=== PATIENT | male | born 1970 | race Caucasian/White ===

== ENCOUNTER 2017-11-26 16:17 | Observation (INO) | payer OTHER ==
--- NOTE | 2017-11-26 16:24 | EDPHY ---
H & P Time Seen by Provider: 11/26/17 16:21 HPI/ROS: CHIEF COMPLAINT: Left ankle pain HISTORY OF PRESENT ILLNESS: 47-year-old male arrives via ambulance, not a trauma activation, complaining of acute left ankle pain after he was hiking on icy conditions, rolled his foot, unable to bear weight. Says stated [facility]. Denies paresthesia. Denies break in skin. He is complaining as well as of fibular head pain. No fall from height. No foot or calcaneus pain. No other injury Last oral intake 11 30 am PRIMARY CARE PROVIDER: In [place] REVIEW OF SYSTEMS: A ten point review of systems was performed and is negative with the exception of the items mentioned in the HPI PAST MEDICAL/SURGICAL HISTORY: Remote colon cancer history. SOCIAL HISTORY: Lives in [place] no acute alcohol use PHYSICAL EXAM 1) GENERAL: Well-developed, well-nourished, alert and oriented. Appears to be in no acute distress. Answering questions appropriately. 2) HEAD: Normocephalic, atraumatic 3) HEENT: Pupils equal, round, reactive to light bilaterally. Negative Horners. Nasopharynx, oropharynx, clear.. 4) NECK: No cervical collar is on. Posterior cervical spine is nontender, no stepoff, no effusion. Full range of motion which does not elicit any midline cervical spine pain, no posterior midline tenderness, no step-off. 5) LUNGS: Clear to auscultation bilaterally, no wheezes, no rhonchi, no retractions. No obvious signs of trauma. No chest wall pain. No flaring, no grunting. Moving symmetrically. No crepitus. 6) HEART: [Regular rate and rhythm, 7) ABDOMEN: No guarding, no rebound, no focal tenderness, no peritoneal signs, no signs of trauma, no ecchymosis 8) MUSCULOSKELETAL: Left lower extremity: Tender to palpation fibular head. No visible deformity. Remainder of knee nontender. Tender to palpation lateral in medial malleolus. Intact skin. No visible deformity. Soft tissue swelling is present. Foot including 5th metatarsal, calcaneus nontender. DP PT pulses present and brisk. Normal color normal temperature. Intact skin. No tenting. Soft compartments of the lower extremity 9) BACK: No midline vertebral tenderness, no fluctuance, no step-off, no obvious trauma, no visual or palpable abnormality. 10) SKIN: No laceration. No abrasion DIFFERENTIAL DIAGNOSIS: In no particular order including but not limited to fracture, sprain, strain, dislocation, compartment syndrome Constitutional: Initial Vital Signs Temperature (C) 36.5 C 11/26/17 16:15 Heart Rate 101 H 11/26/17 16:15 Respiratory Rate 16 11/26/17 16:15 Blood Pressure 156/97 H 11/26/17 16:15 O2 Sat (%) 93 11/26/17 16:15 O2 Delivery Mode Room Air Allergies/Adverse Reactions: clarithromycin Allergy (Intermediate, Verified 11/27/17 09:49) Rash amoxicillin [From Augmentin] Allergy (Mild, Verified 11/27/17 09:49) Rash clavulanic acid [From Augmentin] Allergy (Mild, Verified 11/27/17 09:49) Rash Home Medications: Medication Instructions Recorded Herbals/Supplements -Info Only 1 ea PO DAILY 11/26/17 Enoxaparin [Lovenox 40 MG (*)] 40 mg SQ 1000,2200 #14 syr 11/27/17 oxyCODONE/APAP 5/325 [Percocet 1 - 2 tab PO Q4HRS PRN tab 11/27/17 5/325 (*)] Medical Decision Making Procedures: Procedure: Splint A 3 way Ortho Glass splint was applied by ER electronic test technician. After application of the splint I returned and re-examined the patient. The splint was adequately immobilizing the joint and distal to the splint the patient's circulation and sensation were intact. Patient shows no signs of compartment syndrome. Was given orthopedic precautions. ED Course/Re-evaluation: 5:25 p.m.: Phone consultation with Dr. Gavin Downey orthopedics who reviewed the patient's images remotely, recommended surgery tomorrow requests hospitalist admit, NPO after midnight, patient will be splinted in the ER. Patient agrees with plan 5:30 p.m.: Consultation with hospitalist Dr. Craig admit patient primarily. Patient has been re-evaluated with serial examinations, he remains with soft compartments, neurovascular intact no evidence of compartment syndrome. - Data Points Medications Given: Discontinued Medications Acetaminophen (Tylenol) 650 mg PO Q4HRS PRN PRN Reason: Pain, Mild/Fever, Can Take PO Stop: 05/25/18 17:56 Last Admin: 11/27/17 06:13 Dose: 650 mg Bacitracin (Bacitracin Syringe) Confirm Administered Dose 50,000 units IRR .STK- MED ONE Stop: 11/27/17 10:05 Last Admin: 11/27/17 11:07 Dose: 50,000 units Bupivacaine HCl (Sensorcaine 0.5% Vial) Confirm Administered Dose 30 ml .ROUTE .STK-MED ONE Stop: 11/27/17 10:04 Last Admin: 11/27/17 13:10 Dose: 15 ml Epinephrine HCl (Epinephrine) Confirm Administered Dose 1 mg .ROUTE .STK-MED ONE Stop: 11/27/17 10:04 Last Admin: 11/27/17 11:08 Dose: 0.25 mg Cefazolin Sodium (Cefazolin Syringe) 2 gm in 20 mls @ 200 mls/hr IVP ONCALL ONE PRN Reason: Protocol Stop: 11/27/17 07:32 Last Admin: 11/27/17 10:34 Dose: 20 mls Lactated Ringer's (Lr) 1,000 mls @ 0 mls/hr IV ONCE ONE PRN Reason: As Directed Stop: 11/27/17 09:43 Last Admin: 11/27/17 11:09 Dose: Not Given Oxycodone HCl (Oxycodone Ir) 5 - 10 mg PO Q3HRS PRN PRN Reason: Pain, Severe Able to Take PO Stop: 12/06/17 17:56 Last Admin: 11/27/17 04:52 Dose: 10 mg Oxycodone/Acetaminophen (Percocet 5/325) 1 - 2 tab PO Q4HRS PRN PRN Reason: Pain, Severe Able to Take PO Stop: 12/07/17 13:48 Last Admin: 11/27/17 17:44 Dose: 1 tab Polymyxin B Sulfate (Polymyxin B Syringe) Confirm Administered Dose 500,000 unit IRR .STK-MED ONE Stop: 11/27/17 10:05 Last Admin: 11/27/17 11:09 Dose: 500,000 unit Departure - Departure Disposition: [facility] Inpatient Acute Clinical Impression: Tibia/fibula fracture Qualifiers: Encounter type: initial encounter Fracture type: closed Laterality: left Qualified Code(s): S82.202A - Unspecified fracture of shaft of left tibia, initial encounter for closed fracture; S82.402A - Unspecified fracture of shaft of left fibula, initial encounter for closed fracture; S82.402A - Unspecified fracture of shaft of left fibula, initial encounter for closed fracture Condition: Good
[2017-11-26] MEDS ORDERED: ONDANSETRON 4 MG/2 ML VIAL IVP PRN (17:57)
[2017-11-26] MEDS ORDERED: ONDANSETRON DISINTEGRATING 4 MG TAB PO PRN (17:57)
[2017-11-26 18:04] LABS: PLATELET COUNT 186 10^3/uL (150-400)
[2017-11-26 18:15] LABS: INR 1.09 (0.83-1.16); PROTIME(PATIENT) 14.3 SEC (12.0-15.0)
--- NOTE | 2017-11-26 18:24 | GHP ---
[f rep st] HISTORY AND PHYSICAL DATE OF ADMISSION: 11/26/2017 CHIEF COMPLAINT: Fall. HISTORY OF PRESENT ILLNESS: A 47-year-old, relatively healthy man presents after a fall. He was hik ing in the [place], was coming down, slipped on some ice, twisted his ankle, heard immediate crack ing, was unable to really bear weight on that. He was helped out by [facility]. He has s ensation in his feet and can move them. He did not notice any cuts in his skin. PAST MEDICAL/SURGICAL HISTORY: Colon cancer, diagnosed in 2016, stage III, status post surgical rese ction with an ileostomy which is now reversed, chemo and radiation. He notes that he is in remission at this time. MEDICATIONS: Please see medication reconciliation. ALLERGIES: Some antibiotic. SOCIAL HISTORY: He does not drink. He is and lives in [place]. FAMILY HISTORY: No colon cancer. REVIEW OF SYSTEMS: Ten-point review of systems is conducted and is negative except per HPI. PHYSICAL EXAMINATION: VITAL SIGNS: Blood pressure 156/97, heart rate is 101, respiration rate 16, s aturating 93% on room air. Temperature 36.5. GENERAL: The patient is a pleasant man who appears co mfortable, no acute distress. EXTREMITIES: Shows his left foot to be externally rotated. It is war m. He has sensation and motor intact. HEENT: Shows him to be normocephalic, atraumatic. CARDIOVAS CULAR: Regular rate and rhythm. No murmurs, rubs, or gallops. PULMONARY: Lungs clear to auscultat ion bilaterally. ABDOMEN: Soft, nontender, nondistended. He does have a midline surgical scar. SK IN: Shows no rash. : No Mcnally. NEUROLOGIC: Shows him to be alert and oriented x3. He is movin g all extremities. PSYCHIATRIC: Shows normal mood and affect. LABORATORIES: These are pending at this time. DATA: Ankle x-ray. This shows a displaced spiral fracture through the distal tibia. I discussed this with Jeffrey Mcghee. Will admit to med/surg. IMPRESSION AND PLAN: A 47-year-old male with a tibial fracture. 1. Tibia fracture: Plan for operative fixation tomorrow. He will be n.p.o. after midnight. Coags are pending. Will provide pain control overnight. 2. Colon cancer: Appears to be in remission. Will follow up on his labs to make sure that there ar e no significant abnormalities there. I would not be surprised if he is slightly anemic. /[id number]/MODL
[2017-11-26] MEDS: ACETAMINOPHEN 325 MG TAB PO PRN (18:46)
[2017-11-26] MEDS: oxyCODONE IR 5 MG TAB PO PRN ×2 (18:46→22:10)
[2017-11-27] MEDS: oxyCODONE IR 5 MG TAB PO PRN (04:52)
[2017-11-27] MEDS: ACETAMINOPHEN 325 MG TAB PO PRN (06:13)
[2017-11-27] MEDS ORDERED: ceFAZolin 2 GM/SWFI 2 GM/20 ML SYR IVP ONE (07:27)
--- NOTE | 2017-11-27 07:55 | GCON ---
[f rep st] CONSULTATION ORTHOPEDIC CONSULTATION REASON FOR CONSULTATION: Left lower extremity injury. CHIEF COMPLAINT: Pain, inability to weight bear on the left lower extremity. HISTORY OF PRESENT ILLNESS: A 47-year-old male who presents after slipping and falling [place], twisted his ankle, heard immediate popping and cracking, and u nable to weight bear. He was helped out by [facility]. Denies fevers, chills, nausea, vo miting, chest pain, shortness of breath, numbness, tingling, or weakness. Denies dermal abrasions. PAST MEDICAL HISTORY/SURGICAL HISTORY: Colon cancer diagnosed in 2016, underwent resection with ileo stomy in the summer of 2015, followed by chemo and radiation in the fall of 2016. He notes that he i s now in remission. MEDICATIONS: Includes a probiotic and fiber. ALLERGIES: Include amoxicillin and clarithromycin. SOCIAL HISTORY: Frequent marijuana use, more frequent over the holidays. Denies alcohol or tobacco use. FAMILY HISTORY: Noncontributory. REVIEW OF SYSTEMS: A 10-point review of systems conducted, negative per HPI. PHYSICAL EXAM: VITAL SIGNS: Stable. GENERAL: He is awake, alert, and oriented in no acute distres s. HEENT: Sclerae are white. Mucosal membranes are moist. LUNGS: Breathing is easy and nonlabore d. EXTREMITIES: Left lower extremity is in a long-leg splint, well padded. Compartments are compre ssible and soft through the splint. He has sensation intact to light touch in the 1st webspace and d orsum of the foot. He has intact EHL, FHL, tibialis anterior, gastroc soleus. Palpable DP pulse. LABORATORIES: Patient has hemoglobin of 17.1, white count of 10.7, platelets 186. IMAGING: Tib-fib and ankle x-rays reveal a displaced distal tibia spiral fracture extending up throu gh the interosseous membrane and out the proximal fibula. CT scan is pending. ASSESSMENT AND PLAN: A 47-year-old male with a left spiral displaced distal tibia fracture. Recomme nd operative fixation to improve alignment and function. He is n.p.o. All the risks and benefits we re discussed with the patient which included inherent risks of anesthesia, bleeding, infection, damag e to surrounding anatomic structures, including the superficial and deep peroneal nerves, the possibi lity of malunion, nonunion, symptomatic hardware, the possibility of indefinite kneeling pain at the entry site of the tibial nail, and possibility of signs and symptoms of compartment syndrome. The sarahy cardona will be partial weightbearing for 4-6 weeks after surgery. He will be in a splint initially fo llowed by a boot. He will follow back up in my office in 1 week to remove the splint and check incis ions. He will be able to drive as soon as he is off narcotics, as this is his left lower extremity. Recommend icing and elevating. Patient is a terminal computer operator. I told him to refrain from a nti-inflammatories due to the decreased healing response to them. He will be on Lovenox daily for 1 month for decreased risk of blood clots. Patient understands and agrees. Questions answered. /[id number]/MODL
[2017-11-27] MEDS ORDERED: LR 1,000 ML IV ONE (09:42)
[2017-11-27] MEDS ORDERED: ceFAZolin 2 GM/SWFI 20 ML SYR IVP ONE (09:51)
[2017-11-27] MEDS ORDERED: MIDAZOLAM 2 MG/2 ML VIAL ONE (09:59)
[2017-11-27] MEDS ORDERED: PROPOFOL 200 MG/20 ML VIAL ONE (10:00)
[2017-11-27] MEDS ORDERED: BUPIVACAINE 0.5% 30 ML SDV ONE (10:03)
[2017-11-27] MEDS ORDERED: BACITRACIN 50,000 UNITS/10 ML SYR IRR ONE (10:04)
[2017-11-27] MEDS ORDERED: POLYMYXIN B SULFATE 500,000 UNIT/10 ML SYR IRR ONE (10:04)
--- NOTE | 2017-11-27 10:05 | PDANEPAE ---
ANE Past Medical History - Pulmonary History Hx Oxygen in Use at Home: No Hx Sleep Apnea: No Sleep Apnea Screening Result - Last Documented: Negative - Endocrine History Hx Diabetes: No - Chronic Pain History Chronic Pain: No ANE Review of Systems Review of Systems: ANE Patient History - Allergies Allergies/Adverse Reactions: clarithromycin Allergy (Intermediate, Verified 11/27/17 09:49) Rash amoxicillin [From Augmentin] Allergy (Mild, Verified 11/27/17 09:49) Rash clavulanic acid [From Augmentin] Allergy (Mild, Verified 11/27/17 09:49) Rash - Home Medications Home Medications: Herbals/Supplements -Info Only 1 ea PO DAILY 11/26/17 [Last Taken 11/25/17] - NPO status NPO Since - Liquids (Date): 11/27/17 NPO Since - Liquids (Time): 00:00 NPO Since - Solids (Date): 11/27/17 NPO Since - Solids (Time): 00:00 - Smoking Hx Smoking Status: Never smoked ANE Labs/Vital Signs - Labs Result Diagrams: 11/26/17 17:53 11/26/17 17:53 - Vital Signs Blood Pressure: 141/90 Heart Rate: 75 Respiratory Rate: 16 O2 Sat (%): 94 Height: 175.26 cm Weight: 90.718 kg ANE Physical Exam - Airway Neck exam: FROM Mallampati Score: Class 2 Mouth exam: normal dental/mouth exam - Pulmonary Pulmonary: no respiratory distress - Cardiovascular Cardiovascular: regular rate and rhythym - ASA Status ASA Status: II ANE Anesthesia Plan Anesthesia Plan: general endotracheal anesthesia
[2017-11-27] MEDS ORDERED: OXYCODONE/APAP 5/325 TAB PO PRN ×2 (13:49→13:55)
[2017-11-27] MEDS ORDERED: ONDANSETRON 4 MG/2 ML VIAL IVP PRN ×2 (13:49→13:55)
[2017-11-27] MEDS ORDERED: ONDANSETRON DISINTEGRATING 4 MG TAB PO PRN (13:49)
--- NOTE | 2017-11-27 13:52 | POSTOPPROG ---
Post Op Note Date of Operation: 11/27/17 Surgeon: Gavin Downey Food Mixer: Nelly AMBROSE Anesthesia: GET(General Endotracheal) Pre-op Diagnosis: Left distal tibia spiral fracture Post-op Diagnosis: same Procedure: Left distal tibia open reduction, intramedullary nail Inf/Abcess present in the surg proc area at time of surgery?: No EBL: 50-100 Complications: none
[2017-11-27] MEDS ORDERED: ALBUTEROL 3 ML DEYVIAL IH PRN (13:55)
[2017-11-27] MEDS ORDERED: HYDROmorphONE/DILAUDID 1 MG/ML INJ IVP PRN (13:55)
[2017-11-27] MEDS ORDERED: MEPERIDINE 25 MG/ML SYR IVP PRN (13:55)
[2017-11-27] MEDS ORDERED: HYDROCODONE/APAP 5/325 TAB PO PRN (13:55)
[2017-11-27] MEDS ORDERED: ACETAMINOPHEN 500 MG TAB PO PRN (13:55)
[2017-11-27] MEDS ORDERED: NALOXONE HCL 0.4 MG/ML INJ IVP PRN (13:55)
[2017-11-27] MEDS ORDERED: fentaNYL 100 MCG/2 ML INJ IVP PRN (13:55)
--- NOTE | 2017-11-27 13:55 | POSTANESTH ---
Post Anesthetic Evaluation Cardiovascular Status: Similar to Pre-Op Cond Respiratory Status: Similar to Pre-op Cond. Level of Consciousness/Mental Status: Mildly Sleepy, Arousable Pain Control: Adequate, Prn Tx Ordered Nausea/Vomiting Control: Adequate, Prn Tx Ordered Complications Possibly Related to Anesthesia: None Noted
--- NOTE | 2017-11-27 14:08 | ASMTCMCOM ---
CM Note CM Note Notes: Patient in surgery. Needs TBD at this time. Likely home independent with outpatient therapies. CM to follow. Date Signed: 11/27/2017 02:08 PM Electronically Signed By:Alicia Stoner RN
--- NOTE | 2017-11-27 14:27 | HOSPPROG ---
Hospitalist Progress Note Assessment/Plan: 47y male with fall and pain. First encounter,chart reviewed. #Tibia fracture to OR today #Hx colon CA stable #Pain controlled #Dispo unclear, PT/OT eval. Subjective: Lethargic, in post op setting. No pain. Objective: Vital Signs Temp Pulse Resp BP Pulse Ox 37.1 C 75 16 141/90 H 94 11/27/17 14:00 11/27/17 10:05 11/27/17 10:05 11/27/17 10:05 11/27/17 10:05 Laboratory Results 11/26/17 17:53 11/26/17 17:53 11/26/17 11/27/17 11/28/17 05:59 05:59 05:59 Intake Total 1100 Output Total 100 Balance 1000 PT 14.3 SEC (12.0-15.0) 11/26/17 17:53 INR 1.09 (0.83-1.16) 11/26/17 17:53 - Physical Exam Constitutional: no apparent distress, appears nourished, not in pain Eyes: PERRL, anicteric sclera, EOMI Ears, Nose, Mouth, Throat: moist mucous membranes, hearing normal, ears appear normal Cardiovascular: regular rate and rhythym, No JVD, No edema Respiratory: no respiratory distress, no rales or rhonchi, reduced air movement Gastrointestinal: normoactive bowel sounds, No tenderness, No ascites Skin: warm, normal color, No erythema Musculoskeletal: pain with ROM, generalized weakness Psychiatric: not anxious, not encephalopathic, thought process linear ICD10 Worksheet Patient Problems: Problems Problem Status Onset Tibia fracture Acute - ICD10 Problem Qualifiers (1) Tibia fracture Qualifiers: Encounter type: initial encounter
--- NOTE | 2017-11-27 16:36 | ASMTCMCOM ---
CM Note CM Note Notes: Pt medically stable for d/c, no CM d/c needs identified. Date Signed: 11/27/2017 04:35 PM Electronically Signed By:AMMY Catalan
[2017-11-27 17:18] VITALS: RESP 16
[2017-11-27 18:10] VITALS: BP 109/68; PULSE 76; TEMP 97.4; O2SAT 92
--- NOTE | 2017-11-28 08:31 | GDS ---
[f rep st] DISCHARGE SUMMARY DISCHARGE DIAGNOSIS: Tibia fracture. CONSULTATION: Dr. Gavin Downey of Orthopedics. PHYSICAL EXAM: GENERAL: The patient is alert. VITAL SIGNS: Afebrile at 36.3, pulse 76, respirator y rate 16, blood pressure is 109/68. He is saturating 92% on room air. HOSPITAL COURSE: The patient is a 47-year-old male who presented to the emergency room after sufferi ng ankle pain. He was evaluated and diagnosed with a tibia fracture. He was taken to the operating room by Dr. Downey, had surgical intervention and will be discharged home. To follow up in the outpati ent setting. There are no pending studies. DISCHARGE MEDICATIONS: Percocet, Lovenox. I have reviewed the patient's disposition with Dr. Downey, who is in agreement with the plan. FOLLOW UP: Follow up in the outpatient setting will be with Dr. Downey, as well as the patient's prima ry care physician. /[id number]/MODL
[2017-11-28] MEDS ORDERED: Herbals/Supplements -Info Only PO SCH (09:00)
--- NOTE | 2017-11-28 14:46 | ASDISCHSUM ---
Discharge Information Plan Status:Home with No Needs Medically Cleared to Leave: Discharge Date:11/27/2017 06:37 PM CM D/C Disposition:Home, Routine, Self-Care ADT D/C Disposition:Home, Routine, Self-Care Projected Discharge Date:11/27/2017 06:37 PM Transportation at D/C: Discharge Delay Reason: Follow-Up Date:11/27/2017 06:37 PM Discharge Slot: Final Diagnosis: Placement Information Patient Contact Information Contact Name:BRIANA Relationship: Address: Work Phone: City: [place] Phone: State/Zip Code: Email: Financial Information Financial Class:HMO and PPO Plans Primary Plan Desc:[employer] Primary Plan Number:[id number] Secondary Plan Desc: Secondary Plan Number: Assessment Information [facility] CM Progress Note CM Note CM Note Notes: Patient in surgery. Needs TBD at this time. Likely home independent with outpatient therapies. CM to follow. Date Signed: 11/27/2017 02:08 PM Electronically Signed By:Alicia Stoner RN [facility] CM Progress Note CM Note CM Note Notes: Pt medically stable for d/c, no CM d/c needs identified. Date Signed: 11/27/2017 04:35 PM Electronically Signed By:AMMY Catalan Intervention Information
--- NOTE | 2017-12-01 11:00 | GOP ---
[f rep st] OPERATIVE REPORT DATE OF OPERATION: 11/26/2017 SURGEON: Gavin Downey MD FEEDER DRIVER: MEY Gomez. Ukrainian Folk Arts Instructor was required due to the complexity case, patient's condition for positioning, prepping, karl ping, retraction and closure. ANESTHESIA: General. PREOPERATIVE DIAGNOSIS: Left distal tibia spiral fracture, proximal fibular fracture, posterior mall eolus fracture. POSTOPERATIVE DIAGNOSIS: Left distal tibia spiral fracture, proximal fibular fracture, posterior mal leolus fracture. PROCEDURE PERFORMED: Left distal tibia open reduction, internal fixation and intramedullary nailing. Fluoroscopic guidance greater than 1 hour. FINDINGS: SPECIMENS: None. ESTIMATED BLOOD LOSS: 100 cc. INDICATIONS: A 47-year-old male with an acute left tibial injury while hiking. After discussion of all available treatment options the patient elected to proceed with a left distal tibia open reductio n, internal fixation. The patient verbalized understanding the risks, benefits of procedure and sign ed the informed consent prior to the procedure. DESCRIPTION OF PROCEDURE: Patient was seen in the holding area and the operative site was signed. T he patient then taken to the operating room. After smooth induction of anesthesia, placed in the sup ine position with a lateral bump under the left buttock. A tourniquet was placed around the upper th igh but not inflated. The left lower extremity was then prepped and draped in usual sterile fashion. Operative site was confirmed by signature. Operative time-out performed. Allergies reviewed and a ntibiotics administered. Fluoroscopy was used to identify the fracture site. A small posteromedial skin incision was made. A pointed reduction clamp was placed on bone and hugged bone all the way to the posterolateral cortex. Manual traction manipulation and use of the pointed reduction clamp were able to provide an anatomic reduction of the distal tibia fracture. A percutaneous 2.7 mm lag screw was placed from anteromedial to posterolateral to aid in holding our reduction prior to intramedullar y nailing. Once reduction was confirmed and performed the portion of the intramedullary nailing was performed. An anterior proximal tibia/knee vertical incision was made. Visualization of the patellar tendon and medial retinaculum was visualized. A medial parapatellar approach was made medial to the patellar t endon. A portion of the fat pad was excised. A guide pin was placed on the proximal tibia and confi rmed under fluoroscopy to be in correct position on both AP and lateral x-rays. Entry reamer was use d over the guidewire into the proximal tibia. The tibia was sequentially reamed under fluoroscopic g francescodance to a size 11 for a 10 mm nail. Appropriate length of the nail was measured. The nail was in serted down the tibial canal under fluoroscopic guidance to ensure correct placement and maintenance of reduction of the fracture site. Nail was taken down to the distal tibial physeal scar. Perfect [place] technique was used to place 3 distal locking screws through the nail and distal to the fracture site. Once distal locking screws had been placed final x-rays were taken. Please note, pr ior to distal locking screws, 1 proximal tibial locking screw was placed with the use of the Synthes tibial nail aiming arm. Once final x-rays were taken all wounds were copiously irrigated. The parap atellar approach was closed with 0 Vicryl. Subcutaneous tissues from all incisions were closed with 2-0 Vicryl, larger incisions were closed with 3-0 Monocryl. Distal tibial incisions were closed with 3-0 nylon. Proximal incisions were closed. Skin dressings included Dermabond, Telfa, Tegaderm. Di stal tibia incisions included Xeroform, 4x4s, and Tegaderm. A well-padded posterior mold splint was placed on the patient's left lower extremity. At the end of the case all surgical counts were correc t. The patient was then safely awakened, extubated, and taken to recovery room in stable condition. Postoperatively, the patient will be touch toe weightbearing for 4-6 weeks. He will be on Lovenox f or 1 month for DVT prophylaxis. He was given a prescription for Percocets. Follow back up in the of [facility] in 1 week for wound check and possibly transition into a Cam boot. Plan was discussed with the patient and his . They understand and agree. Questions were answered. DRAINS: None. COMPLICATIONS: None. IMPLANTS: Synthes 330 mm size 10 tibial nail as well as a 2.7 mm lag screw, also with 3, 5 mm distal locking screws for the intramedullary nail. /[id number]/MODL
== END 2017-11-27 18:37 | disposition home or self-care (01) ==
LOC: F3N 18:30 → OBSVTOIN 11-27 14:28 → INTOOBSV 11-27 14:28
PROVIDERS: ADMIT Student in an Organized Health Care Education/Training Program; ATTEND Nurse Practitioner Family
PROC: BQ1H1ZZ Fluoroscopy of Left Ankle using Low Osmolar Contrast (ICD-10-PCS; principal; 2017-11-26)
PROC: 0QSH06Z Reposition Left Tibia with Intramedullary Internal Fixation Device, Open Approach (ICD-10-PCS; principal; 2017-11-26)
DX: S82.242A Displaced spiral fracture of shaft of left tibia, initial encounter for closed fracture (principal); S82.442A Displaced spiral fracture of shaft of left fibula, initial encounter for closed fracture; M77.32 Calcaneal spur, left foot; W00.0XXA Fall on same level due to ice and snow, initial encounter; Y92.828 Other wilderness area as the place of occurrence of the external cause; Y93.01 Activity, walking, marching and hiking; Z85.038 Personal history of other malignant neoplasm of large intestine
CPT/HCPCS: 27759; 73590; 73610; 73700; 76001; G0378; C1713; J0171; J0690; J2250; J2704